=== PATIENT | male | born 1995 ===

== ENCOUNTER 2019-09-24 19:47 | Emergency (ER) | payer SELFPAY ==
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
[2019-09-24 20:59] VITALS: BP 124/87
--- NOTE | 2019-09-24 22:23 | XRay Report ---
Right hand, 3 views INDICATION: Nontraumatic pain tonight FINDINGS: The joint space is maintained. There is no fracture or dislocation. No spurring or arthriti c change. No bone lesion or periostitis. No significant abnormality. IMPRESSION: Negative study Signer Name: Ruben Montenegro MD Signed: 09/24/2019 10:19 PM Workstation Name: [id number]
== END 2019-09-24 22:00 | disposition left against medical advice (07) ==
LOC: ED 19:47
DX: Z04.1 Encounter for examination and observation following transport accident (principal); Z53.21 Procedure and treatment not carried out due to patient leaving prior to being seen by health care provider